=== PATIENT | female | born 1955 | race Two or more races ===

== ENCOUNTER 2017-06-15 10:23 | Outpatient (CLI) | payer OTHER ==
[2017-06-15 11:42] LABS: BASOPHILS # (AUTO) 0.1 K/uL (0.0-8.0); BASOPHILS % (AUTO) 0.9 % (0.0-2.0); EOSINOPHILS # (AUTO) 0.2 K/uL (0.0-0.7); EOSINOPHILS % (AUTO) 3.4 % (0.0-7.0); HEMATOCRIT 40.7 % (31.2-41.9); HEMOGLOBIN 13.7 g/dL (10.9-14.3); LYMPHOCYTES # (AUTO) 1.5 K/uL (20.0-40.0); LYMPHOCYTES % (AUTO) 26.6 % (20.5-51.5); MEAN CORPUSCULAR HEMOGLOBIN 29.6 uug (24.7-32.8); MEAN CORPUSCULAR HGB CONC 34 g/dL (32.3-35.6); MONOCYTES # (AUTO) 0.3 K/uL (2.0-10.0); MONOCYTES % (AUTO) 5.2 % (0.0-11.0); NEUTROPHILS # (AUTO) 3.6 K/uL (1.8-8.9); NEUTROPHILS % (AUTO) 63.9 % (38.5-71.5); PLATELET COUNT (AUTO) 282 K/uL (179-408); RED BLOOD CELL COUNT(AUTO) 4.63 MIL/uL (3.63-4.92); WHITE BLOOD COUNT (AUTO) 5.7 K/uL (3.8-11.8)
[2017-06-15 11:49] LABS: CREATININE 1.3 mg/dL (0.6-1.3); POTASSIUM 4.4 mmol/L (3.5-5.1)
[2017-06-15 11:57] LABS: *BILIRUBIN,URIN NEGATIVE (NEGATIVE); *BLOOD, URINE 1+ (NEGATIVE); *CLARITY,URINE CLEAR (CLEAR); *COLOR,URINE YELLOW (YELLOW); *KETONES,URINE NEGATIVE (NEGATIVE); *PROTEIN,URINE 1+ (NEGATIVE); *UROBILINOGEN,URINE 0.2 E.U./dl (NORMAL); LEUKOCYTE ESTERASE ,URINE NEGATIVE (NEGATIVE); NITRITE, URINE NEGATIVE (NEGATIVE); PH,URINE 5.5 (5.0-8.0); UGLUCOSE NEGATIVE (NEGATIVE)
[2017-06-15 12:18] LABS: BACTERIA,URINE FEW /HPF (NONE SEEN); WBC,URINE 0-3 /HPF (0-3)
[2017-06-15 12:19] LABS: SQUAMOUS EPITHELIAL CELL,UR MODERATE /HPF (NONE SEEN)
== END 2017-06-15 23:59 | disposition home or self-care (01) ==
LOC: LAB 10:23
PROVIDERS: ATTEND Internal Medicine
DX: Z01.818 Encounter for other preprocedural examination (principal); I51.7 Cardiomegaly; I70.0 Atherosclerosis of aorta
CPT/HCPCS: 36415; 71045; 80048; 81001; 83036; 85025; 85730; 93005; A4663

== ENCOUNTER 2017-06-18 07:42 | Day surgery (SDC) | payer OTHER ==
[2017-06-18] MEDS ORDERED: LIDOCAINE HCL 2% 20 ML VIAL MC ONE (07:43)
[2017-06-18] MEDS ORDERED: PROPOFOL 200 MG/20 ML BOTTLE IV ONE (07:43)
[2017-06-18] MEDS ORDERED: SEVOFLURANE 250 ML BOTTLE IH ONE (07:43)
[2017-06-18] MEDS ORDERED: DEXAMETHASONE SOD PHOSPHATE 4 MG INJ IV ONE (07:43)
[2017-06-18] MEDS ORDERED: ONDANSETRON 4 MG/2 ML VIAL IV ONE (07:43)
[2017-06-18] MEDS ORDERED: POLYMYXIN B SULFATE 500,000 UNITS, BACITRACIN 50,000 UNITS, NORMAL SALINE 20 ML MC ONE ×3 (08:15)
[2017-06-18] MEDS ORDERED: CLINDAMYCIN PHOSPHATE 600 MG/4 ML VIAL ONE (08:24)
[2017-06-18] MEDS ORDERED: TRIAMCINOLONE ACETONIDE 40 MG/1 ML VIAL ONE (09:28)
[2017-06-18] MEDS ORDERED: BUPIVACAINE PF 0.5% 30 ML VIAL ONE (09:28)
[2017-06-18] MEDS ORDERED: TRAMADOL HCL 50 MG TABLET ONE (11:01)
== END 2017-06-18 12:06 | disposition home or self-care (01) ==
LOC: DS 07:42
PROVIDERS: ATTEND Orthopaedic Surgery
DX: S63.612A Unspecified sprain of right middle finger, initial encounter (principal); X58.XXXA Exposure to other specified factors, initial encounter; Y93.9 Activity, unspecified; Y92.89 Other specified places as the place of occurrence of the external cause; Y99.9 Unspecified external cause status; Z88.0 Allergy status to penicillin; E66.9 Obesity, unspecified; E11.9 Type 2 diabetes mellitus without complications; M19.90 Unspecified osteoarthritis, unspecified site
CPT/HCPCS: 26055; 82962; 93307; J3301; J3490 ×4; J7030; A4649; J1100; J2405

== ENCOUNTER 2020-02-13 06:12 | Outpatient (CLI) | payer OTHER | END 2020-02-13 23:59 | disposition home or self-care (01) | LOC: LAB 06:12 | PROVIDERS: ATTEND Orthopaedic Surgery | DX: Z01.812 Encounter for preprocedural laboratory examination (principal); Z20.828 Contact with and (suspected) exposure to other viral communicable diseases; M65.342 Trigger finger, left ring finger; M65.332 Trigger finger, left middle finger ==

== ENCOUNTER 2020-02-15 06:19 | Day surgery (SDC) | payer OTHER ==
[2020-02-15] MEDS ORDERED: METOCLOPRAMIDE HCL 10 MG/2 ML VIAL IV ONE (06:20)
[2020-02-15] MEDS ORDERED: SEVOFLURANE 250 ML BOTTLE IH ONE (06:20)
[2020-02-15] MEDS ORDERED: PROPOFOL 200 MG/20 ML BOTTLE IV ONE (06:20)
[2020-02-15] MEDS ORDERED: ONDANSETRON 4 MG/2 ML VIAL IV ONE (06:20)
[2020-02-15] MEDS ORDERED: CLINDAMYCIN PHOSPHATE 600 MG/4 ML VIAL IV ONE (06:20)
[2020-02-15] MEDS ORDERED: POLYMYXIN B SULFATE 500,000 UNITS, BACITRACIN 50,000 UNITS, NORMAL SALINE 20 ML MC ONE ×3 (07:15)
[2020-02-15] MEDS ORDERED: MIDAZOLAM HCL 2 MG/2 ML VIAL ONE (07:30)
[2020-02-15] MEDS ORDERED: FENTANYL CITRATE 250 MCG/5 ML AMPUL ONE (07:31)
[2020-02-15] MEDS ORDERED: BUPIVACAINE PF 0.5% 30 ML VIAL ONE (07:49)
[2020-02-15] MEDS ORDERED: CLINDAMYCIN PHOSPHATE 600 MG/4 ML VIAL ONE (08:04)
[2020-02-15] MEDS ORDERED: FENTANYL CITRATE 100 MCG/2 ML AMPUL ONE (10:06)
== END 2020-02-15 12:00 | disposition home or self-care (01) ==
LOC: DS 06:19
PROVIDERS: ATTEND Orthopaedic Surgery
DX: M65.842 Other synovitis and tenosynovitis, left hand (principal); M19.90 Unspecified osteoarthritis, unspecified site; K21.9 Gastro-esophageal reflux disease without esophagitis; I51.7 Cardiomegaly; Z79.899 Other long term (current) drug therapy; Z98.890 Other specified postprocedural states; Z88.2 Allergy status to sulfonamides; Z88.5 Allergy status to narcotic agent
CPT/HCPCS: 26055; 26145; 82962 ×2; J2250; J2405; J2765; J3010 ×2; J3490 ×5; J7120; A4649

== ENCOUNTER 2020-07-08 07:18 | Outpatient (CLI) | payer OTHER | END 2020-07-08 23:59 | disposition home or self-care (01) | LOC: LAB 07:18 | PROVIDERS: ATTEND Orthopaedic Surgery | DX: Z01.812 Encounter for preprocedural laboratory examination (principal); Z20.822 Contact with and (suspected) exposure to COVID-19; M65.841 Other synovitis and tenosynovitis, right hand ==

== ENCOUNTER 2020-07-22 06:27 | Outpatient (CLI) | payer OTHER | END 2020-07-22 23:59 | disposition home or self-care (01) | LOC: LAB 06:27 | PROVIDERS: ATTEND Internal Medicine | DX: Z01.812 Encounter for preprocedural laboratory examination (principal); Z20.822 Contact with and (suspected) exposure to COVID-19 ==

== ENCOUNTER 2020-07-23 09:52 | Outpatient (CLI) | payer OTHER ==
[2020-07-23 10:53] LABS: EOSINOPHILS # (AUTO) 0.2 K/uL (0.0-0.7); EOSINOPHILS % (AUTO) 4.8 % (0.0-7.0); HEMATOCRIT 39.5 % (31.2-41.9); HEMOGLOBIN 13.3 g/dL (10.9-14.3); LYMPHOCYTES # (AUTO) 1.1 K/uL (20.0-40.0); LYMPHOCYTES % (AUTO) 28.8 % (20.5-51.5); MEAN CORPUSCULAR HEMOGLOBIN 29.7 uug (24.7-32.8); MEAN CORPUSCULAR HGB CONC 34 g/dL (32.3-35.6); MEAN CORPUSCULAR VOLUME 88.2 fL (75.5-95.3); MONOCYTES # (AUTO) 0.3 K/uL (2.0-10.0); MONOCYTES % (AUTO) 7.9 % (0.0-11.0); NEUTROPHILS # (AUTO) 2.2 K/uL (1.8-8.9); NEUTROPHILS % (AUTO) 57.5 % (38.5-71.5); PLATELET COUNT (AUTO) 186 K/uL (179-408); RED BLOOD CELL COUNT(AUTO) 4.48 MIL/uL (3.63-4.92); WHITE BLOOD COUNT (AUTO) 3.8 K/uL (3.8-11.8)
[2020-07-23 10:54] LABS: *BILIRUBIN,URIN NEGATIVE (NEGATIVE); *BLOOD, URINE 1+ (NEGATIVE); *CLARITY,URINE SLIGHTLY CLOUDY (CLEAR); *COLOR,URINE YELLOW (YELLOW); *KETONES,URINE NEGATIVE (NEGATIVE); *UROBILINOGEN,URINE 0.2 E.U./dl (NORMAL); LEUKOCYTE ESTERASE ,URINE NEGATIVE (NEGATIVE); NITRITE, URINE NEGATIVE (NEGATIVE); PH,URINE 5.5 (5.0-8.0); UGLUCOSE NEGATIVE (NEGATIVE)
[2020-07-23 11:20] LABS: BILIRUBIN,TOTAL 0.5 mg/dL (0.2-1.0); CREATININE 1.2 mg/dL (0.6-1.3); POTASSIUM 4.2 mmol/L (3.5-5.1); TOTAL PROTEIN, SERUM 6.8 g/dL (6.4-8.2)
[2020-07-23 15:21] LABS: BACTERIA,URINE 0 /HPF (NONE SEEN); SQUAMOUS EPITHELIAL CELL,UR NONE SEEN /HPF (NONE SEEN); YEAST,URINE FEW /HPF (NONE SEEN)
== END 2020-07-23 23:59 | disposition home or self-care (01) ==
LOC: LAB 09:52
PROVIDERS: ATTEND Internal Medicine
DX: Z01.818 Encounter for other preprocedural examination (principal); M65.841 Other synovitis and tenosynovitis, right hand
CPT/HCPCS: 36415; 85025; 85730; 87086; 93005

== ENCOUNTER 2020-07-25 06:42 | Day surgery (SDC) | payer OTHER ==
[2020-07-25] MEDS ORDERED: LIDOCAINE-MPF 2% 5 ML VIAL MC ONE (06:43)
[2020-07-25] MEDS ORDERED: SEVOFLURANE 250 ML BOTTLE IH ONE (06:43)
[2020-07-25] MEDS ORDERED: PROPOFOL 200 MG/20 ML BOTTLE IV ONE (06:43)
[2020-07-25] MEDS ORDERED: BUPIVACAINE PF 0.5% 30 ML VIAL ONE (07:18)
[2020-07-25] MEDS ORDERED: POLYMYXIN B SULFATE 500,000 UNITS, BACITRACIN 50,000 UNITS, NORMAL SALINE 20 ML MC ONE (07:30)
[2020-07-25] MEDS ORDERED: FENTANYL CITRATE 100 MCG/2 ML AMPUL ONE (07:50)
[2020-07-25] MEDS ORDERED: MIDAZOLAM HCL 2 MG/2 ML VIAL ONE (07:51)
[2020-07-25] MEDS ORDERED: ONDANSETRON 4 MG/2 ML VIAL ONE (09:27)
[2020-07-25] MEDS ORDERED: HYDROMORPHONE 1 MG/1 ML DISP.SYRIN ONE (09:27)
== END 2020-07-25 10:56 | disposition home or self-care (01) ==
LOC: DS 06:42
PROVIDERS: ATTEND Orthopaedic Surgery
DX: M65.841 Other synovitis and tenosynovitis, right hand (principal); I10 Essential (primary) hypertension; E11.9 Type 2 diabetes mellitus without complications; M19.90 Unspecified osteoarthritis, unspecified site; Z79.899 Other long term (current) drug therapy; Z98.890 Other specified postprocedural states; Z88.0 Allergy status to penicillin; Z88.1 Allergy status to other antibiotic agents
CPT/HCPCS: 26145; 82962; J1170; J2250; J2405; J3010; J3490 ×4; A4649; A4663; J7030